=== PATIENT | male | born 1950 | race Caucasian/White ===

== ENCOUNTER 2022-07-07 17:59 | Emergency (ER) | payer MEDICARE ==
[~2022-07-07] VITALS: Ht 175.3 cm; Wt 90.9 kg
[2022-07-07] MEDS ORDERED: LYRICA100 MG PO (18:14)
[2022-07-07] MEDS ORDERED: NORTRIPTYLIN25 MG PO (18:14)
[2022-07-07 18:33] LABS: HEMATOCRIT 43.9 % (39.0-50.0); HEMOGLOBIN 15.2 g/dl (14.0-18.0); IMMATURE GRANULOCYTES 0.2 % (0.0-5.0); MEAN CELL VOLUME 86.4 fL CALC (80.0-100.0); MEAN CORPUSCULAR HGB 29.9 pG CALC (26.0-32.0); MEAN CORPUSCULAR HGB CONC 34.6 g/dL CAL (32.0-36.0); NEUT# 8.62 thou/uL (1.82-7.42); RED BLOOD COUNT 5.08 mill/uL (4.70-6.10); RED CELL DISTRI WIDTH 12.4 % (11.5-15.5)
[2022-07-07 18:51] LABS: ALBUMIN 3.8 g/dL (3.2-5.0); ALKALINE PHOSPHATASE 52 u/l (38-126); ANION GAP 14 (6-22 (CALC)); BILIRUBIN, TOTAL 0.7 mg/dL (0.0-1.4); BUN 14 mg/dL (8-23); BUN/CREATININE RATIO 20 (12-20 (CALC)); CARBON DIOXIDE 20 mmol/l (22-30); CHLORIDE 107 mmol/l (95-108); CREATININE 0.7 mg/dL (0.7-1.3); GFR FOR AFR.AMER. > 60 ML/MIN (>=60 (CALC)); GFR OTHER RACES > 60 ML/MIN (>=60 (CALC)); LIPASE 25 u/l (23-300); SGOT/AST 28 u/l (19-48); SODIUM 138 mmol/l (137-146); TOTAL PROTEIN 6.4 g/dL (6.3-8.2)
[2022-07-07 19:03] LABS: MYOGLOBIN 40 ng/mL (0 - 121)
[2022-07-07] MEDS ORDERED: MECLIZINE25 MG PO (19:57)
[2022-07-07] MEDS ORDERED: MEDDOSEPAK PO (19:57)
[2022-07-07] MEDS ORDERED: ONDANSETRON4 MG PO (19:57)
[2022-07-07 20:10] VITALS: BP 155/72
== END 2022-07-07 20:38 | disposition home or self-care (01) ==
LOC: ED 17:59
PROVIDERS: Emergency Medicine
DX: R42 Dizziness and giddiness (principal)